=== PATIENT | male | born 1990 ===

== ENCOUNTER 2021-02-26 12:30 | Emergency (ER) | payer SELFPAY ==
[~2021-02-26] VITALS: Ht 180.3 cm; Wt 74.5 kg
[2021-02-26 12:37] VITALS: BP 144/93
[2021-02-26 13:11] LABS: MICROSCOPIC NOT IND
--- NOTE | 2021-02-26 13:29 | NUR ---
PT FROM LOBBY TO ROOM WITH A STEADY GAIT.
--- NOTE | 2021-02-26 13:32 | NUR ---
PATIENT WALKED BACK FROM TRIAGE WITH CHIEF C/O MIGRAINE AND CONGESTION X2-3 DAYS. AT HOME PAIN MEDICATION NOT WORKING. NADN, CONNECTED TO MONITOR, VSS, CALL LIGHT WITHIN REACH. Addendum: 02/26/21 at 1336 by HLARAAliza PATIENT ALSO C/O PAINFUL URINATION.
--- NOTE | 2021-02-26 14:22 | NUR ---
Patient given discharge instructions and they have confirmed that they understand the instructions. Patient ambulatory with steady gait.
== END 2021-02-26 16:04 | disposition home or self-care (01) ==
LOC: ED 16:00
DX: R30.0 Dysuria (principal); R09.81 Nasal congestion; B34.9 Viral infection, unspecified
CPT/HCPCS: 81003; 87491; 87591; 99283